=== PATIENT | female | born 1950 | race Caucasian/White ===

== ENCOUNTER 2017-11-24 00:19 | Emergency (ER) | payer MEDICARE ==
[~2017-11-24] VITALS: Ht 170.2 cm; Wt 90.7 kg
[2017-11-24 00:25] VITALS: BP_SYST 171
[2017-11-24 01:36] LABS: BASOPHILS # (AUTO) 0.1 K/uL (0.0-0.2); BASOPHILS % (AUTO) 1.9 % (0.0-2.0); EOSINOPHILS # (AUTO) 0.1 K/uL (0.0-0.4); EOSINOPHILS % (AUTO) 0.7 % (0.0-4.0); HEMATOCRIT 43.6 % (36-48); HEMOGLOBIN 14.2 g/dL (12.0-16.0); LYMPHOCYTES % (AUTO) 26.6 % (20.5-51.5); MEAN CORPUSCULAR HEMOGLOBIN 29 pg (27-31); MEAN CORPUSCULAR HGB CONC 33 % (32-36); MEAN CORPUSCULAR VOLUME 89 fL (79.0-98.0); MONOCYTES # (AUTO) 0.4 K/uL (0.0-1.0); MONOCYTES % (AUTO) 5.9 % (1.7-9.3); NEUTROPHILS # (AUTO) 4.7 K/uL (1.8-7.7); NEUTROPHILS % (AUTO) 64.9 % (40.0-70.0); PLATELET COUNT (AUTO) 242 K/uL (130-430); RED BLOOD CELL COUNT(AUTO) 4.89 MIL/uL (4.2-6.2); RED CELL DISTRIBUTION WIDTH 13.4 % (9.0-15.0); WHITE BLOOD COUNT (AUTO) 7.3 K/uL (4.8-10.8)
[2017-11-24 01:40] LABS: CALCIUM 9.9 mg/dL (8.4-11.0); CREATININE 0.87 mg/dL (0.55-1.30); POTASSIUM 3.9 mmol/L (3.5-5.1)
[2017-11-24] MEDS ORDERED: KETOROLAC TROMETHAMINE 30 MG VIAL IVP ONE (01:45)
[2017-11-24 01:47] LABS: ALBUMIN 3.9 g/dL (3.4-4.8); TOTAL BILIRUBIN 0.8 mg/dL (0.0-1.0)
[2017-11-24 02:03] VITALS: BP_SYST 116
[2017-11-24] MEDS ORDERED: EZET10TA PO (02:31)
[2017-11-24] MEDS ORDERED: POTA-118 PO (02:31)
[2017-11-24] MEDS ORDERED: CLOP75TA2 PO (02:31)
[2017-11-24] MEDS ORDERED: METO25TA6 PO (02:31)
[2017-11-24] MEDS ORDERED: PSYL3.4P6 PO (02:31)
[2017-11-24] MEDS ORDERED: NITSL SL (02:31)
[2017-11-24] MEDS ORDERED: NIAC500T2 PO (02:31)
[2017-11-24] MEDS ORDERED: ISOS60TA4 PO (02:31)
[2017-11-24] MEDS ORDERED: GLUC1CAP29 PO (02:31)
[2017-11-24] MEDS ORDERED: ACID1CAP PO (02:31)
[2017-11-24] MEDS ORDERED: DONE10TA44 PO (02:31)
[2017-11-24] MEDS ORDERED: OMA1G GT (02:31)
[2017-11-24] MEDS ORDERED: CALC-439 PO (02:31)
[2017-11-24] MEDS ORDERED: ASPI-1063 PO (02:31)
== END 2017-11-24 02:03 | disposition home or self-care (01) ==
LOC: SED 00:19
DX: S40.022A Contusion of left upper arm, initial encounter (principal); S09.93XA Unspecified injury of face, initial encounter; E78.00 Pure hypercholesterolemia, unspecified; R22.0 Localized swelling, mass and lump, head; Z88.8 Allergy status to other drugs, medicaments and biological substances; W01.0XXA Fall on same level from slipping, tripping and stumbling without subsequent striking against object, initial encounter; Y93.89 Activity, other specified; Y92.098 Other place in other non-institutional residence as the place of occurrence of the external cause; Y99.8 Other external cause status
CPT/HCPCS: 36415; 70450; 70486; 73060; 80053; 85025; 93005; 96374; 99285; J1885